=== PATIENT | female | born 1945 | race Caucasian/White ===

== ENCOUNTER 2018-11-11 17:40 | Emergency (ER) | payer MEDICARE, MEDICAID ==
[~2018-11-11] VITALS: Ht 160 cm; Wt 46.7 kg
--- NOTE | 2018-11-11 17:51 | NUR ---
ED Nurse Note: Called patient. patient not in waiting room.
[2018-11-11 18:02] VITALS: BP 200/86
--- NOTE | 2018-11-11 18:02 | NUR ---
ED Nurse Note: pt walked in to ER from home for opened blister on Lt foot. no drainage and no s/s of infection. pt aao x4 and ambulatory. calm and cooperative.
[2018-11-11] MEDS ORDERED: NORVASC5 MG ORAL (18:09)
[2018-11-11] MEDS ORDERED: VITAMIN D1000 UNI1 ORAL (18:09)
--- NOTE | 2018-11-11 18:17 | Emergency Room Report ---
History of Present Illness General Chief Complaint: Skin Rash/Abscess Source: Patient Present Illness HPI 72 YO Female presents to the ED c/o blister on the top of the left foot that is infected. She reports erythema and warmth. Pt. states she has had similar symptoms in the past and her PCP Dr. Santiago rx'd her a topical cream which resolved her sx's. Pt. does not know the name of the cream. Pt. denies fevers, chills or swollen tender lymph nodes. Denies lesions/rashes elsewhere on the body. Denies new medications or body washes or creams. Denies swelling of the lips, tongue , throat or airway. Denies wheezing, or shortness of breath. Denies recent travel, recent illness or ill contacts. She denies oral lesions, or sloughing of the skin. She has an elevated BP and reports she hasnt taken her medication for HTN yet. denies dizziness, imbalance, SCHERER, eye pain or photophobia. Allergies: Coded Allergies: MORPHINE (Verified Allergy, Unknown, 11/11/18) Patient History Past Medical History: see triage record Past Surgical History: none Pertinent Family History: none Now: No Reviewed Nursing Documentation: PMH: Agreed; PSxH: Agreed Nursing Documentation-PMH Past Medical History: No History, Except For Hx Hypertension: Yes Review of Systems All Other Systems: negative except mentioned in HPI Physical Exam Vital Signs Date Time Temp Pulse Resp B/P (MAP) Pulse Ox O2 Delivery O2 Flow Rate FiO2 11/11/18 17:59 98.1 83 19 200/86 (124) 99 Room Air Sp02 EP Interpretation: reviewed, normal General Appearance: no apparent distress, alert, GCS 15, non-toxic Head: normocephalic, atraumatic Eyes: bilateral eye normal inspection, bilateral eye PERRL ENT: hearing grossly normal, normal voice Neck: full range of motion Respiratory: lungs clear, normal breath sounds, speaking full sentences Cardiovascular #1: regular rate, rhythm, normal capillary refill, edema - left foot is swollen with some erythema and warmth up to the midfoot area. NVI Musculoskeletal: back normal, gait/station normal, normal range of motion, inflammation - distal half of the left foot, some erythema and warmth as well as small 1 inch wound on the dorsal aspect noted. Neurologic: alert, oriented x3, responsive, motor strength/tone normal, sensory intact, speech normal, grossly normal Psychiatric: judgement/insight normal Skin: other - Swelling/inflammation of the distal half of the left foot, some erythema and warmth as well as small 1 inch wound on the dorsal aspect noted. Medical Decision Making PA Attestation Dr. Minaya is my supervising Physician whom patient management has been discussed with. Diagnostic Impression: Primary Impression: Cellulitis Qualified Codes: L03.116 - Cellulitis of left lower limb Additional Impression: Elevated blood pressure reading ER Course 72 YO Female presents to the ED c/o blister on the top of the left foot that is infected. She reports erythema and warmth. Pt. states she has had similar symptoms in the past and her PCP Dr. Santiago rx'd her a topical cream which resolved her sx's. Pt. does not know the name of the cream. Pt. denies fevers, chills or swollen tender lymph nodes. Denies lesions/rashes elsewhere on the body. Denies new medications or body washes or creams. Denies swelling of the lips, tongue , throat or airway. Denies wheezing, or shortness of breath. Denies recent travel, recent illness or ill contacts. She denies oral lesions, or sloughing of the skin. She has an elevated BP and reports she hasnt taken her medication for HTN yet. denies dizziness, imbalance, SCHERER, eye pain or photophobia. Ddx considered but are not limited to cellulitis, SJS, drug reaction, Burn, insect bites, fracture, d/L, gout Vital signs: Pt. has elevated BP in the 200's/100's. the remaining VS are WNL, pt. is afebrile H&PE are most consistent with cellulitis of the dorsal left foot. -Elevated BP secondary to not taking BP medication this evening yet. ORDERS: none required at this time, the diagnosis is clinical ED INTERVENTIONS: None required at this time. DISCHARGE: At this time pt. is stable for d/c to home. Will provide printed patient care instructions, and any necessary prescriptions. Care plan and follow up instructions have been discussed with the patient prior to discharge. Last Vital Signs Date Time Temp Pulse Resp B/P (MAP) Pulse Ox O2 Delivery O2 Flow Rate FiO2 11/11/18 17:59 98.1 83 19 200/86 (124) 99 Room Air Disposition: HOME, SELF-CARE Condition: Stable Scripts Trimethoprim/Sulfamethoxazole 160/800* (BACTRIM DS TABLET*) 1 Each Tablet 1 TAB ORAL TWICE A DAY for 7 Days, #14 TAB Prov: Evelia Mcgowan 11/11/18 Cephalexin* (KEFLEX*) 500 Mg Capsule 500 MG ORAL EVERY 12 HOURS for 7 Days, #14 CAP 0 Refills Prov: Evelia Mcgowan 11/11/18 Bacitracin/Polymyxin B Sulfate (BACITRACIN-POLYMYXIN OINTMENT) 28.35 Gm Oint...g. 1 APPLIC TP BID, #28.3 GM Prov: Evelia Mcgowan 11/11/18 Patient Instructions: Cellulitis, [id number] Additional Instructions: Take medications as directed. Follow up with a Primary Care Provider in 3-5 days, even if your symptoms have resolved. --Please review list of primary care clinics, if you do not already have a primary care provider Return sooner to ED if new symptoms occur, or current symptoms become worse. - Please note that this Emergency Department Report was dictated using Definition [employer]bra[employer] folder technology software, occasionally this can lead to erroneous entry secondary to interpretation by the dictation equipment. Evelia Mcgowan Nov 11, 2018 18:17
[2018-11-11] MEDS ORDERED: BACTRIM DS TAB1 EAC1 ORAL (18:56)
[2018-11-11] MEDS ORDERED: BACITRACIN-P28.35 GM TP (18:56)
[2018-11-11] MEDS ORDERED: CEPHALEXIN500 MG ORAL (18:56)
[2018-11-11] MEDS ORDERED: Bacitracin Oint UD TOPIC ONE (19:00)
--- NOTE | 2018-11-11 19:02 | NUR ---
ER DISCHARGE NOTE: Patient is cleared to be discharged per ERMD, pt is aox4, on room air, with stable vital signs. pt was given dc and prescription instructions, pt was able to verbalize understanding, pt id band removed. pt is able to ambulate with steady gait. pt took all belongings.
[2018-11-11 19:07] VITALS: BP 150/74
== END 2018-11-11 19:02 | disposition home or self-care (01) ==
LOC: EMR 18:30
DX: L03.116 Cellulitis of left lower limb (principal); I10 Essential (primary) hypertension; Z88.6 Allergy status to analgesic agent
CPT/HCPCS: 99283